=== PATIENT | female | born 1965 | race Caucasian/White ===

== ENCOUNTER 2020-06-13 15:47 | Emergency (ER) | payer MEDICARE, SELFPAY ==
[2020-06-13 16:03] VITALS: BP 139/94; PULSE 79; RESP 18; TEMP 36.8; O2SAT 95; BMI 31.2
[2020-06-13 16:37] LABS: Appearance Urine CLEAR; Color Urine DARK YELLOW; Glucose Urine UA NEG (NEG); Leukocyte Esterase Urine NEG (NEG); Nitrite Urine NEG (NEG); PH 5.5 (5.0-8.0); Specific Gravity - Urine >= 1.030 (1.005-1.025); Urine Blood NEG (NEG); Urine Ketones 5 MG/DL (NEG); Urine Protein NEG (NEG-TRACE)
--- NOTE | 2020-06-13 16:54 | ED.GENADULT ---
HPI - General Adult General Chief complaint: General Medical Stated complaint: low back pain Time Seen by Provider: 06/13/20 16:54 Source: patient and family Mode of arrival: ambulatory Limitations: no limitations History of Present Illness HPI narrative: Patient's hypertension high cholesterol on Lipitor complaining of low back pain and lower abdominal pain for last 4 days also you notice dark urine. No nausea no vomiting no diarrhea injuries radiation of pain to the leg Related Data Previous Rx's Medication Instructions Recorded cyclobenzaprine 10 mg PO Q8H #20 tab 06/13/20 tramadol 50 mg PO Q6H PRN #20 tab 06/13/20 Allergies Allergy/AdvReac Type Severity Reaction Status Date / Time No Known Allergies Allergy Verified 06/13/20 17:04 [facility] Past Medical History Medical History (Updated 06/13/20 @ 19:44 by Femi Hernandez MD) Diabetes Fatty liver HTN (hypertension) Social History Social History Smoking Status: Never smoker Use of substances other than those prescribed or required for medical reasons: No Advance Directives: No Advance Directives Information Provided: Yes Physical Exam Vital Signs: Vital Signs: Last Vital Signs Temp 98.3 F 06/13/20 16:03 Pulse 84 06/13/20 17:49 Resp 16 06/13/20 17:49 BP 120/85 06/13/20 17:49 Pulse Ox 96 06/13/20 17:49 Body Mass Index 31.2 Medical Decision Making Lab Data Result diagrams: 06/13/20 17:48 06/13/20 17:48 Labs: Lab Results 06/13/20 06/13/20 06/13/20 Range/Units 16:15 17:48 17:48 WBC 6.7 (4.8-10.8) X10*3/uL RBC 4.97 (4.20-5.50) X10*6/uL Hgb 15.1 (12.0-16.0) g/dl Hct 43.9 (37-47) % MCV 88.3 (80-98) fL MCH 30.4 (27.0-33.0) pg MCHC 34.4 (31.0-35.0) g/dl RDW 12.0 (11.0-16.0) % Plt Count 179 (160-400) X10*3/uL MPV 10.0 (9.4-12.3) fL Immature Gran % (Auto) 0.4 (0.0-0.4) % Neut % (Auto) 54.0 (45-73) % Lymph % (Auto) 34.4 (20-40) % [place] % (Auto) 8.2 (2-11) % Eos % (Auto) 2.1 (0-4) % Baso % (Auto) 0.9 (0-2) % Lymph # (Auto) 2.3 (1.2-4.9) X10*3/uL [place] # (Auto) 0.6 (0.1-1.2) X10*3/uL Eos # (Auto) 0.1 (0.0-0.4) X10*3/uL Baso # (Auto) 0.1 (0.0-0.2) X10*3/uL Abs Immat Gran (auto) 0.03 (0.00-0.03) X10*3/uL Absolute Neuts (auto) 3.6 (2.0-8.3) X10*3/uL Absolute Nucleated RBC 0.000 (0.0-0.012) X10*3/uL Nucleated RBC % (auto) 0.0 (0.0-0.2) /100WBC Sodium 138 (135-145) mmol/L Potassium 3.5 (3.3-5.1) mmol/L Chloride 104 (96-108) mmol/L Carbon Dioxide 22 (22-29) mmol/L Anion Gap 16 (12-20) BUN 20 H (9-16) mg/dL Creatinine 0.79 (0.5-1.4) mg/dL Estim Creat Clear Calc 77.5 Estimated GFR > 60 Random Glucose 228 H (60-115) mg/dL Calcium 9.4 (8.4-10.2) mg/dL Total Bilirubin 0.6 (0.0-1.0) mg/dL Direct Bilirubin 0.2 (0.0-0.5) mg/dL AST 52 H (5-31) U/L ALT 113 H (0-31) U/L Alkaline Phosphatase 116 (39-117) U/L Total Protein 7.2 (6.5-8.0) g/dL Albumin 4.3 (3.5-5.0) g/dL Lipase 31 (8-78) U/L Urine Color DARK YELLOW Urine Appearance CLEAR Urine pH 5.5 (5.0-8.0) Ur Specific [place] >= 1.030 H (1.005-1.025) Urine Protein NEG (NEG-TRACE) MG/DL Urine Glucose (UA) NEG (NEG) MG/DL Urine Ketones 5 (NEG) MG/DL Urine Blood NEG (NEG) Urine Nitrite NEG (NEG) Ur Leukocyte Esterase NEG (NEG) Discharge Plan Discharge Clinical Impression: Low back pain Qualifiers: Chronicity: acute Back pain laterality: bilateral Sciatica presence: without sciatica Qualified Code(s): M54.5 - Low back pain Patient Disposition: Home, Self-Care Instructions: Back Pain (ED) Additional Instructions: Rest at home apply ice take pain medication as prescribed. Yes slightly elevated liver enzymes not life-threatening Follow with PCP to recheck liver enzymes in 1 week Prescriptions: New cyclobenzaprine 10 mg tablet 10 mg PO Q8H Qty: 20 RF: 0 tramadol 50 mg tablet 50 mg PO Q6H PRN (Reason: pain) Qty: 20 RF: 0 Print Language: Dutch
[2020-06-13 17:49] VITALS: BP 120/85; PULSE 84; RESP 16; O2SAT 96
[2020-06-13 17:54] LABS: MANUAL DIFF FLAG NO
[2020-06-13 17:57] LABS: Basophils Absolute Auto 0.1 X10*3/uL (0.0-0.2); Basophils Percent Auto 0.9 % (0-2); Eosinophils Absolute Auto 0.1 X10*3/uL (0.0-0.4); Eosinophils Percent Auto 2.1 % (0-4); Hematocrit 43.9 % (37-47); Hemoglobin 15.1 g/dl (12.0-16.0); Imm Gran Abs Auto 0.03 X10*3/uL (0.00-0.03); Imm Gran Pct Auto 0.4 % (0.0-0.4); Lymphocytes Absolute Auto 2.3 X10*3/uL (1.2-4.9); Lymphocytes Percent Auto 34.4 % (20-40); Mean Corpuscular HGB Conc 34.4 g/dl (31.0-35.0); Mean Corpuscular Hemoglobin 30.4 pg (27.0-33.0); Mean Corpuscular Volume 88.3 fL (80-98); Monocytes Absolute Auto 0.6 X10*3/uL (0.1-1.2); Monocytes Percent Auto 8.2 % (2-11); Neutrophils Absolute Auto 3.6 X10*3/uL (2.0-8.3); Platelet Count 179 X10*3/uL (160-400); Red Blood Count 4.97 X10*6/uL (4.20-5.50); White Blood Count 6.7 X10*3/uL (4.8-10.8)
[2020-06-13 18:20] LABS: Alanine Aminotransferase 113 U/L (0-31); Albumin Level 4.3 g/dL (3.5-5.0); Alkaline Phosphatase 116 U/L (39-117); Anion Gap 16 (12-20); Aspartate Amino Transferase 52 U/L (5-31); Bilirubin Direct 0.2 mg/dL (0.0-0.5); Bilirubin Total 0.6 mg/dL (0.0-1.0); Blood Urea Nitrogen 20 mg/dL (9-16); Calcium 9.4 mg/dL (8.4-10.2); Carbon Dioxide 22 mmol/L (22-29); Chloride 104 mmol/L (96-108); Creatinine Clr Calc Pharmacy 77.5; Estimated Glomerular Filt Rate > 60; Glucose Random 228 mg/dL (60-115); Lipase 31 U/L (8-78); Potassium 3.5 mmol/L (3.3-5.1); Sodium 138 mmol/L (135-145); Total Protein 7.2 g/dL (6.5-8.0)
[2020-06-13] MEDS: Ketorolac Tromethamine 30 MG/ML VIAL IVPUSH (18:20)
[2020-06-13 19:57] VITALS: BP 120/82; PULSE 81; RESP 17; O2SAT 95
--- NOTE | 2020-06-13 19:59 | PC.NURSE ---
Pt aaox4, daughter at bedside. Pt denies offer of potato chip fryer stating I can understand you and my daughter understands everything. I don't want an potato chip fryer. Pt educated on DC instructions, expresses understanding. Pt ambulatory with steady gait.
== END 2020-06-13 20:07 | disposition home or self-care (01) ==
PROVIDERS: Emergency Provider Internal Medicine
DX: M54.5 Low back pain (principal)
CPT/HCPCS: 36415; 80048; 80076; 81003; 83690; 85025; 96374; 99284; J1885

== ENCOUNTER 2020-06-18 11:38 | Emergency (ER) | payer MEDICARE, SELFPAY ==
--- NOTE | ~2020-06-18 | CT_ITS ---
EXAMINATION: CT ABDOMEN AND PELVIS WITHOUT CONTRAST CLINICAL INFORMATION: Left flank pain COMPARISON: None TECHNIQUE: Multidetector volumetric imaging was performed from the superior aspect of the liver through the pubic symphysis. Sagittal and coronal reformatted images were obtained on the technologist's workstation. This CT examination was performed using dose optimization techniques as appropriate, variously including the following: *Automated exposure control *Adjustment of mA and/or kV according to patient size (this includes techniques or standardized protocols for targeted exams where dose is matched to indication/reason for exam; i.e. extremities or head) *Use of iterative reconstruction technique DLP: 553 mGy-cm FINDINGS: LUNG BASES: There is a small calcified left lower lobe pulmonary nodule probably representing a calcified granuloma. LIVER, GALLBLADDER, AND BILIARY TREE: The liver is low in attenuation suggestive of fatty infiltration. The liver is enlarged. There is a small calcification in the left lobe of the liver. No other focal liver lesion is seen.. The gallbladder is unremarkable. There is no biliary duct dilatation.. PANCREAS: Unremarkable. SPLEEN: Unremarkable. ADRENAL GLANDS: Unremarkable. KIDNEYS AND URETERS: There is question of a tiny 1 mm stone in the lower pole of the left kidney. The kidneys are otherwise unremarkable. No hydronephrosis, ureteral dilatation or ureteral stone. BLADDER: Unremarkable. GASTROINTESTINAL TRACT: The small and large bowel are unremarkable. The appendix is unremarkable. ABDOMINAL WALL: No significant hernia is appreciated. LYMPH NODES: Normal. VASCULAR: Unremarkable. PELVIC VISCERA: Unremarkable. OSSEOUS STRUCTURES: Unremarkable. CT/CT abdomen pelvis wo con IMPRESSION: Question tiny 1 mm left lower pole renal stone. Enlarged fatty liver.
[2020-06-18 11:41] VITALS: BP 144/92; PULSE 92; RESP 20; TEMP 36.7; O2SAT 96; BMI 30.9
--- NOTE | 2020-06-18 13:40 | ECG_ITS ---
Test Reason : DIZZINESS Blood Pressure : / mmHG Vent. Rate : 075 BPM Atrial Rate : 075 BPM P-R Int : 150 ms QRS Dur : 086 ms QT Int : 420 ms P-R-T Axes : 060 004 030 degrees QTc Int : 469 ms Normal sinus rhythm Cannot rule out Anterior infarct , age undetermined ; could be from lead positioning and body habitus Abnormal ECG No previous ECGs available Referred By: Gissell Palafox Electronically Signed By:JUAN DIEGO MONTENEGRO
--- NOTE | 2020-06-18 13:58 | ED_ITS ---
HPI - General Adult General Chief complaint: General Medical Stated complaint: flank pain Time Seen by Provider: 06/18/20 13:29 Source: patient, family and old records reviewed Mode of arrival: ambulatory Limitations: no limitations History of Present Illness HPI narrative: 55 yo female with DM, fatty liver, HTN here with L flank pain radiating down leg with tingling and burning at times no trauma seen for this re cently no improvement with tramadol and flexeril just feels dizzy and has a mild headache, notes pain is worse with walking radiates from L flank to leg, painful to ambulate first thing in the AM, wraps around abdomen at times MD complaint: L flank pain Onset (ago): week(s) (1) Location: back Radiation: extremity and abdomen Severity: severe Quality: burning and stabbing Pain Consistency: constant Relieving factors: none Exacerbating factors: movement Associated symptoms: denies other symptoms Treatments prior to arrival: other (has been taking tramadol and flexeril without relief) Related Data Previous Rx's Medication Instructions Recorded cyclobenzaprine 10 mg PO Q8H #20 tab 06/13/20 tramadol 50 mg PO Q6H PRN #20 tab 06/13/20 diazepam [Valium] 5 mg PO TID PRN #10 tab 06/18/20 lidocaine 1 patch TOPICAL DAILY PRN #10 ea 06/18/20 prednisone 20 mg PO DAILY 5 Days #5 tab 06/18/20 Allergies Allergy/AdvReac Type Severity Reaction Status Date / Time No Known Allergies Allergy Verified 06/18/20 11:41 Review of Systems Review of Systems: Constitutional : No Weight loss, No Fever, No Chills ENT/Mouth : No sore throat, No Rhinorrhea Eyes: No Swelling, No Redness Cardiovascular : No Chest Pain, No SOB, NoEdema Respiratory : No Cough, No Sputum, No Wheezing Gastrointestinal : Positive Nausea, no Vomiting, positive Diarrhea, positive abdominal Pain, No Hematochezia, No Melena Genitourinary : No Dysuria, No Urinary Frequency, No Hematuria, No Urgency Musculoskeletal : No joint pain, No Myalgias, No Joint Swelling, pos back pain Skin : No Skin Lesions, No rash Neuro : No Weakness, No Numbness, No Dizziness, No Headache Psych : No Anxiety/Panic, No Depression Heme/Lymph: No Bruising, No Lymphadenopathy Endocrine : No Polyuria, No Polydipsia All other systems reviewed and are negative. COUNTS INCLUDE 234 BEDS AT THE [facility] Past Medical History Attestation statement: The following information was validated with the patient. Medical History Diabetes Fatty liver HTN (hypertension) Social History Social History Alcohol intake: never Smoking Status: Never smoker Smoked in Last 30 Days: No Use of substances other than those prescribed or required for medical reasons: No Advance Directives: No Advance Directives Information Provided: No Physical Exam Vital Signs: Vital Signs: Last Vital Signs Temp 98 F 06/18/20 15:40 Pulse 87 06/18/20 15:40 Resp 20 06/18/20 15:40 BP 142/94 H 06/18/20 15:40 Pulse Ox 98 06/18/20 15:40 Body Mass Index 30.9 Appearance: Alert. Oriented X3. No acute distress. Eyes: Pupils equal, round and reactive to light. ENT: Pharynx normal. Neck: Normal inspection. Neck supple. CVS: Normal heart rate and rhythm. Pulses normal. Respiratory: No respiratory distress. Breath sounds normal. Abdomen: Soft and mild suprapubic ttp Back: L flank ttp into buttock Skin: Skin warm and dry. Normal skin color. Normal skin turgor. Extremities: No lower extremity edema. No calf ttp Neuro: Oriented X 3. No motor deficit. No sensory deficit. SILT inner thigh L5 5/5 bilaterally, pain with raising L leg Course Course Course Narrative: no acute findings, NV intact, stable for DC Medical Decision Making [facility] Narrative Medical decision making narrative: 55 yo female with L flank pain into abdomen and legs seems like sciatica but denies a history and denies trauma, at this time will repeat labs, treat with toradol and IV morphine, CT scan for renal colic, NV intact no b/b incontinence, no saddle anesthesia. Dispo per results and findings. Lab Data Result diagrams: 06/18/20 14:11 06/18/20 14:11 Labs: Lab Results 06/18/20 06/18/20 06/18/20 Range/Units 14:11 14:11 14:11 WBC 6.9 (4.8-10.8) X10*3/uL RBC 5.37 (4.20-5.50) X10*6/uL Hgb 16.4 H (12.0-16.0) g/dl Hct 46.9 (37-47) % MCV 87.3 (80-98) fL MCH 30.5 (27.0-33.0) pg MCHC 35.0 (31.0-35.0) g/dl RDW 11.9 (11.0-16.0) % Plt Count 224 D (160-400) X10*3/uL MPV 9.9 (9.4-12.3) fL Immature Gran % (Auto) 0.3 (0.0-0.4) % Neut % (Auto) 57.1 (45-73) % Lymph % (Auto) 31.1 (20-40) % [place] % (Auto) 8.7 (2-11) % Eos % (Auto) 1.9 (0-4) % Baso % (Auto) 0.9 (0-2) % Lymph # (Auto) 2.1 (1.2-4.9) X10*3/uL [place] # (Auto) 0.6 (0.1-1.2) X10*3/uL Eos # (Auto) 0.1 (0.0-0.4) X10*3/uL Baso # (Auto) 0.1 (0.0-0.2) X10*3/uL Abs Immat Gran (auto) 0.02 (0.00-0.03) X10*3/uL Absolute Neuts (auto) 3.9 (2.0-8.3) X10*3/uL Absolute Nucleated RBC 0.000 (0.0-0.012) X10*3/uL Nucleated RBC % (auto) 0.0 (0.0-0.2) /100WBC Hold Blue Top SEE NOTE Sodium 138 (135-145) mmol/L Potassium 4.0 (3.3-5.1) mmol/L Chloride 106 (96-108) mmol/L Carbon Dioxide 23 (22-29) mmol/L Anion Gap 13 (12-20) BUN 15 (9-16) mg/dL Creatinine 0.73 (0.5-1.4) mg/dL Estim Creat Clear Calc 83.5 Estimated GFR > 60 Random Glucose 148 H D (60-115) mg/dL Calcium 9.9 (8.4-10.2) mg/dL Magnesium (1.6-2.6) mg/dL Total Bilirubin (0.0-1.0) mg/dL Direct Bilirubin (0.0-0.5) mg/dL AST (5-31) U/L ALT (0-31) U/L Alkaline Phosphatase (39-117) U/L Total Protein (6.5-8.0) g/dL Albumin (3.5-5.0) g/dL Lipase (8-78) U/L Urine Color Urine Appearance Urine pH (5.0-8.0) Ur Specific [place] (1.005-1.025) Urine Protein (NEG-TRACE) MG/DL Urine Glucose (UA) (NEG) MG/DL Urine Ketones (NEG) MG/DL Urine Blood (NEG) Urine Nitrite (NEG) Ur Leukocyte Esterase (NEG) 06/18/20 06/18/20 Range/Units 14:11 15:25 WBC (4.8-10.8) X10*3/uL RBC (4.20-5.50) X10*6/uL Hgb (12.0-16.0) g/dl Hct (37-47) % MCV (80-98) fL MCH (27.0-33.0) pg MCHC (31.0-35.0) g/dl RDW (11.0-16.0) % Plt Count (160-400) X10*3/uL MPV (9.4-12.3) fL Immature Gran % (Auto) (0.0-0.4) % Neut % (Auto) (45-73) % Lymph % (Auto) (20-40) % [place] % (Auto) (2-11) % Eos % (Auto) (0-4) % Baso % (Auto) (0-2) % Lymph # (Auto) (1.2-4.9) X10*3/uL [place] # (Auto) (0.1-1.2) X10*3/uL Eos # (Auto) (0.0-0.4) X10*3/uL Baso # (Auto) (0.0-0.2) X10*3/uL Abs Immat Gran (auto) (0.00-0.03) X10*3/uL Absolute Neuts (auto) (2.0-8.3) X10*3/uL Absolute Nucleated RBC (0.0-0.012) X10*3/uL Nucleated RBC % (auto) (0.0-0.2) /100WBC Hold Blue Top Sodium (135-145) mmol/L Potassium (3.3-5.1) mmol/L Chloride (96-108) mmol/L Carbon Dioxide (22-29) mmol/L Anion Gap (12-20) BUN (9-16) mg/dL Creatinine (0.5-1.4) mg/dL Estim Creat Clear Calc Estimated GFR Random Glucose (60-115) mg/dL Calcium (8.4-10.2) mg/dL Magnesium 2.1 (1.6-2.6) mg/dL Total Bilirubin 0.7 (0.0-1.0) mg/dL Direct Bilirubin 0.2 (0.0-0.5) mg/dL AST 53 H (5-31) U/L ALT 113 H (0-31) U/L Alkaline Phosphatase 119 H (39-117) U/L Total Protein 7.9 (6.5-8.0) g/dL Albumin 4.6 (3.5-5.0) g/dL Lipase 31 (8-78) U/L Urine Color YELLOW Urine Appearance CLEAR Urine pH 5.5 (5.0-8.0) Ur Specific [place] >= 1.030 H (1.005-1.025) Urine Protein NEG (NEG-TRACE) MG/DL Urine Glucose (UA) 500 H (NEG) MG/DL Urine Ketones NEG (NEG) MG/DL Urine Blood NEG (NEG) Urine Nitrite NEG (NEG) Ur Leukocyte Esterase NEG (NEG) ECG Data Attestation: I personally reviewed and interpreted this ECG as follows: Interpretation: Rate: 75 Rhythm: NSR [place]: left Normal P waves. Normal REYNA. Normal QRS complex. ST T wave : normal no MARLEE qTC: normal prior studies: no acute ischemia The study has been interpreted contemporaneously by me. . Discharge Plan Discharge Clinical Impression: Sciatica Qualifiers: Laterality: left Qualified Code(s): M54.32 - Sciatica, left side Patient Disposition: Home, Self-Care Instructions: Sciatica (ED), Lower Back Exercises (ED) Additional Instructions: return to ED for any worsening symptoms or concerns steroids can increase your blood sugar monitor carefully Prescriptions: New lidocaine 4 % adhesive patch,medicated 1 patch topical DAILY PRN (Reason: pain) Qty: 10 RF: 0 prednisone 20 mg tablet 20 mg PO DAILY 5 Days Qty: 5 RF: 0 diazepam [Valium] 5 mg tablet 5 mg PO TID PRN (Reason: muscle spasm) Qty: 10 RF: 0 No Action cyclobenzaprine 10 mg tablet 10 mg PO Q8H Qty: 20 RF: 0 tramadol 50 mg tablet 50 mg PO Q6H PRN (Reason: pain) Qty: 20 RF: 0 Referrals: Physician,None [Primary Care Provider] - 2 days Stand Alone Forms: Work/School Release Print Language: [place]i
[2020-06-18 14:16] LABS: MANUAL DIFF FLAG NO
[2020-06-18 14:18] LABS: Basophils Absolute Auto 0.1 X10*3/uL (0.0-0.2); Basophils Percent Auto 0.9 % (0-2); Eosinophils Absolute Auto 0.1 X10*3/uL (0.0-0.4); Eosinophils Percent Auto 1.9 % (0-4); Hematocrit 46.9 % (37-47); Hemoglobin 16.4 g/dl (12.0-16.0); Imm Gran Abs Auto 0.02 X10*3/uL (0.00-0.03); Imm Gran Pct Auto 0.3 % (0.0-0.4); Lymphocytes Absolute Auto 2.1 X10*3/uL (1.2-4.9); Lymphocytes Percent Auto 31.1 % (20-40); Mean Corpuscular Hemoglobin 30.5 pg (27.0-33.0); Mean Corpuscular Volume 87.3 fL (80-98); Mean Platelet Volume 9.9 fL (9.4-12.3); Monocytes Absolute Auto 0.6 X10*3/uL (0.1-1.2); Monocytes Percent Auto 8.7 % (2-11); Neutrophils Absolute Auto 3.9 X10*3/uL (2.0-8.3); Neutrophils Percent Auto 57.1 % (45-73); Platelet Count 224 X10*3/uL (160-400); Red Blood Count 5.37 X10*6/uL (4.20-5.50); Red Cell Distribution Width 11.9 % (11.0-16.0); White Blood Count 6.9 X10*3/uL (4.8-10.8)
[2020-06-18] MEDS: Ketorolac Tromethamine 30 MG/ML VIAL IVPUSH (14:28)
[2020-06-18] MEDS: ondansetron HCL 4 MG/2 ML VIAL IVPUSH (14:28)
[2020-06-18] MEDS: Morphine Sulfate 4 MG/ML CARTRIDGE IVPUSH (14:28)
[2020-06-18] MEDS: 0.9 % Sodium Chloride 1,000 ML 999 ML IVCONT (14:36)
[2020-06-18 14:46] LABS: Anion Gap 13 (12-20); Blood Urea Nitrogen 15 mg/dL (9-16); Calcium 9.9 mg/dL (8.4-10.2); Carbon Dioxide 23 mmol/L (22-29); Chloride 106 mmol/L (96-108); Creatinine Clr Calc Pharmacy 83.5; Estimated Glomerular Filt Rate > 60; Glucose Random 148 mg/dL (60-115); Sodium 138 mmol/L (135-145)
[2020-06-18 14:51] LABS: Alanine Aminotransferase 113 U/L (0-31); Albumin Level 4.6 g/dL (3.5-5.0); Alkaline Phosphatase 119 U/L (39-117); Aspartate Amino Transferase 53 U/L (5-31); Bilirubin Direct 0.2 mg/dL (0.0-0.5); Bilirubin Total 0.7 mg/dL (0.0-1.0); Lipase 31 U/L (8-78); Magnesium 2.1 mg/dL (1.6-2.6); Total Protein 7.9 g/dL (6.5-8.0)
[2020-06-18 15:40] VITALS: BP 142/94; PULSE 87; RESP 20; TEMP 36.6; O2SAT 98
[2020-06-18 15:40] LABS: Glucose Urine UA 500 MG/DL (NEG); Leukocyte Esterase Urine NEG (NEG); Nitrite Urine NEG (NEG); PH 5.5 (5.0-8.0); Specific Gravity - Urine >= 1.030 (1.005-1.025); Urine Blood NEG (NEG); Urine Ketones NEG (NEG); Urine Protein NEG (NEG-TRACE)
[2020-06-18 15:42] LABS: Appearance Urine CLEAR; Color Urine YELLOW
[2020-06-18 16:13] VITALS: BP 145/99; PULSE 78; RESP 16; O2SAT 98
== END 2020-06-18 16:17 | disposition home or self-care (01) ==
PROVIDERS: Emergency Provider Emergency Medicine
DX: M54.42 Lumbago with sciatica, left side (principal); E11.9 Type 2 diabetes mellitus without complications; I10 Essential (primary) hypertension; K76.0 Fatty (change of) liver, not elsewhere classified
CPT/HCPCS: 36415; 74176; 80048; 80076; 81003; 83690; 83735; 85025; 93005; 96361; 96374; 96375; 99284; 99285; J1885; J2270; J2405

== ENCOUNTER 2020-06-21 07:31 | Outpatient (REF) | payer MEDICARE, SELFPAY | END 2020-06-21 07:32 | disposition home or self-care (01) | LOC: HO.LAB 07:31 | PROVIDERS: Visit Provider Internal Medicine | DX: Z20.822 Contact with and (suspected) exposure to COVID-19 (principal) | CPT/HCPCS: C9803; U0003; U0005 ==

== ENCOUNTER 2020-07-05 10:31 | Outpatient (REF) | payer MEDICARE, SELFPAY | END 2020-07-05 10:32 | disposition home or self-care (01) | LOC: HO.LAB 10:31 | PROVIDERS: Visit Provider Internal Medicine | DX: Z20.822 Contact with and (suspected) exposure to COVID-19 (principal) | CPT/HCPCS: C9803; U0003; U0005 ==